=== PATIENT | male | born 2000 | race Caucasian/White ===

== ENCOUNTER 2020-09-24 10:09 | Emergency (ER) | payer OTHER ==
[~2020-09-24] VITALS: Ht 167.6 cm; Wt 56.7 kg
[~2020-09-24 10:09] MED LIST: AMOX500 PO; AMOX50SU PO; CALCA400CH; INSN100I SQ; INSR10I SC; INSUASPI SC; INSULANI SC; INSULANPEN SC; MULTCH; RXCODACESY PO
[2020-09-24 10:46] LABS: BASOPHILS ABSOLUTE AUTO 0.04 K/mm3 (0.00-0.23); BASOPHILS PERCENT AUTO 0 % (0-2); EOSINOPHILS ABSOLUTE AUTO 0.03 K/mm3 (0.00-0.68); EOSINOPHILS PERCENT AUTO 0 % (0-6); Hematocrit 42.7 % (37.0-53.0); Hemoglobin 14.7 g/dL (13.5-17.5); IMMATURE GRAN ABSOLUTE AUTO 0.05 K/mm3 (0.00-0.10); IMMATURE GRAN PERCENT AUTO 1 % (0-1); LYMPHOCYTES ABSOLUTE AUTO 1.56 K/mm3 (0.84-5.20); LYMPHOCYTES PERCENT AUTO 15 % (21-46); MONOCYTES ABSOLUTE AUTO 0.56 K/mm3 (0.16-1.47); MONOCYTES PERCENT AUTO 6 % (4-13); Mean Corpuscular HGB 29.6 pg (26.0-34.0); Mean Corpuscular HGB Conc 34.4 g/dL (31.5-36.5); Mean Corpuscular Volume 86 fL (80-100); Mean Platelet Volume 10.2 fL (9.1-12.4); NEUTROPHILS ABSOLUTE AUTO 7.92 K/mm3 (1.96-9.15); NEUTROPHILS PERCENT AUTO 78 % (41-73); Platelet Count 293 K/mm3 (150-400); RDW Coefficient Variation 11.8 % (11.7-14.2); Red Blood Cell Count 4.96 M/mm3 (4.30-5.90); White Blood Cell Count 10.16 K/mm3 (4.00-11.30)
[2020-09-24 11:03] LABS: Alanine Aminotransfer (ALT/SGP 33 U/L (12-78); Albumin, Blood 4.1 g/dL (3.4-5.0); Albumin/Globulin Ratio 1.1 (0.8-1.8); Alk Phos 109 U/L (50-136); Anion Gap 7 mmol/L (6-16); Aspartate Aminotrans (AST/SGOT 31 U/L (12-37); Bilirubin, Total 0.3 mg/dL (0.1-1.0); Blood Urea Nitrogen 11 mg/dL (8-24); Bun/Creatinine Ratio 16.1 (12.0-20.0); CO2, Blood 27 mmol/L (21-32); Calcium, Blood 9.2 mg/dL (8.5-10.1); Chloride, Blood 104 mmol/L (98-108); Creatinine, Blood 0.68 mg/dL (0.60-1.20); Globulin, Blood 3.7 g/dL (2.2-4.0); Glomerular Filtration Rate >60 (60-); Glucose, Blood 109 mg/dL (70-99); Sodium, Blood 138 mmol/L (136-145); Total Protein, Blood 7.8 g/dL (6.4-8.2)
[2020-09-24 11:16] LABS: Source, Urine Voided
[2020-09-24 11:23] LABS: Appearance, Urine Clear (Clear); Bilirubin, Urine Neg (Neg); Blood, Urine 1+ (Neg); Color, Urine Yellow (P-Yellow); Glucose Qualitative, Urine 3+ (Neg); Ketones, Urine 4+ (Neg); Leukocyte Esterase, Urine Neg (Neg); Nitrite, Urine Neg (Neg); Protein, Urine 3+ (Neg); Specific Gravity, Urine 1.015 (1.003-1.022); Urobilinogen, Urine NORM (Normal)
[2020-09-24 11:34] LABS: Bacteria Rare /hpf; Mucus Mod (0-Heavy); Red Blood Cells, Urine 0-2 /hpf (0-2); Squamous Epithelial Cells Rare /hpf (Few); White Blood Cells, Urine 0-2 /hpf (0-5)
[2020-09-24] MEDS ORDERED: ONDA4ODT MM (13:51)
== END 2020-09-24 14:01 | disposition home or self-care (01) ==
LOC: ER 10:09
PROVIDERS: Emergency Medicine
DX: R11.2 Nausea with vomiting, unspecified (principal); R10.12 Left upper quadrant pain; E10.9 Type 1 diabetes mellitus without complications; Z79.4 Long term (current) use of insulin
CPT/HCPCS: 36415; 80053; 81001; 83690; 85025; 96374; 96375; 99284-25; J1200; J1630; J2765; J3010; J7120

== ENCOUNTER 2021-04-09 15:38 | Emergency (ER) | payer OTHER ==
[~2021-04-09] VITALS: Ht 167.6 cm; Wt 59.0 kg
[~2021-04-09 15:38] MED LIST changes: +ONDA4ODT MM
[2021-04-09 16:25] LABS: BASOPHILS ABSOLUTE AUTO 0.06 K/mm3 (0.00-0.23); BASOPHILS PERCENT AUTO 0 % (0-2); EOSINOPHILS ABSOLUTE AUTO 0.04 K/mm3 (0.00-0.68); EOSINOPHILS PERCENT AUTO 0 % (0-6); Hematocrit 45.1 % (37.0-53.0); IMMATURE GRAN ABSOLUTE AUTO 0.11 K/mm3 (0.00-0.10); IMMATURE GRAN PERCENT AUTO 1 % (0-1); LYMPHOCYTES ABSOLUTE AUTO 2.47 K/mm3 (0.84-5.20); LYMPHOCYTES PERCENT AUTO 14 % (21-46); MONOCYTES ABSOLUTE AUTO 1.58 K/mm3 (0.16-1.47); MONOCYTES PERCENT AUTO 9 % (4-13); Mean Corpuscular HGB 29.9 pg (26.0-34.0); Mean Corpuscular HGB Conc 35.5 g/dL (31.5-36.5); Mean Corpuscular Volume 84 fL (80-100); NEUTROPHILS ABSOLUTE AUTO 13.34 K/mm3 (1.96-9.15); NEUTROPHILS PERCENT AUTO 76 % (41-73); Platelet Count 372 K/mm3 (150-400); RDW Coefficient Variation 11.9 % (11.7-14.2); RDW Standard Deviation 36.8 fL (35.1-46.3); Red Blood Cell Count 5.36 M/mm3 (4.30-5.90)
[2021-04-09 16:40] LABS: Alanine Aminotransfer (ALT/SGP 41 U/L (12-78); Albumin, Blood 3.9 g/dL (3.4-5.0); Albumin/Globulin Ratio 1.1 (0.8-1.8); Alk Phos 130 U/L (50-136); Anion Gap 12 mmol/L (6-16); Aspartate Aminotrans (AST/SGOT 25 U/L (12-37); Bilirubin, Total 0.9 mg/dL (0.1-1.0); Blood Urea Nitrogen 30 mg/dL (8-24); CO2, Blood 22 mmol/L (21-32); Calcium, Blood 9.4 mg/dL (8.5-10.1); Chloride, Blood 94 mmol/L (98-108); Creatinine, Blood 0.63 mg/dL (0.60-1.20); Globulin, Blood 3.5 g/dL (2.2-4.0); Glomerular Filtration Rate >60 (60-); Glucose, Blood 174 mg/dL (70-99); Potassium, Blood 4.1 mmol/L (3.5-5.5); Sodium, Blood 128 mmol/L (136-145); Total Protein, Blood 7.4 g/dL (6.4-8.2)
[2021-04-09 16:53] LABS: Source, Urine Catheter
[2021-04-09 17:04] LABS: Bilirubin, Urine Neg (Neg); Blood, Urine 3+ (Neg); Glucose Qualitative, Urine 4+ (Neg); Ketones, Urine 4+ (Neg); Leukocyte Esterase, Urine Neg (Neg); Nitrite, Urine Neg (Neg); Protein, Urine 4+ (Neg); Urobilinogen, Urine NORM (Normal)
[2021-04-09 17:13] LABS: Appearance, Urine Clear (Clear); Color, Urine Pale Yellow (P-Yellow)
[2021-04-09 17:14] LABS: Granular Casts 0-2 /lpf (0)
[2021-04-09 17:15] LABS: Bacteria Mod /hpf; Red Blood Cells, Urine 0-2 /hpf (0-2); Squamous Epithelial Cells Not Seen /hpf (Few); White Blood Cells, Urine Rare /hpf (0-5)
[2021-04-09 19:26] LABS: pH Blood Venous 7.37 (7.34-7.37)
[2021-04-09 19:27] LABS: Bicarbonate Venous 22.2 mmol/L (24.0-30.0); PCO2 Venous 38.5 mmHg (38-42); PO2 Venous 83.1 mmHg (38-42)
[2021-04-09 19:36] LABS: Anion Gap 11 mmol/L (6-16); Blood Urea Nitrogen 27 mg/dL (8-24); Bun/Creatinine Ratio 45.5 (12.0-20.0); CO2, Blood 22 mmol/L (21-32); Calcium, Blood 8.6 mg/dL (8.5-10.1); Chloride, Blood 96 mmol/L (98-108); Creatinine, Blood 0.59 mg/dL (0.60-1.20); Glomerular Filtration Rate >60 (60-); Glucose, Blood 162 mg/dL (70-99); Sodium, Blood 129 mmol/L (136-145)
== END 2021-04-09 20:07 | disposition home or self-care (01) ==
LOC: ER 15:38
PROVIDERS: Physician Assistant; Student in an Organized Health Care Education/Training Program
DX: E10.65 Type 1 diabetes mellitus with hyperglycemia (principal); E87.1 Hypo-osmolality and hyponatremia; E86.0 Dehydration; Z88.8 Allergy status to other drugs, medicaments and biological substances; E10.319 Type 1 diabetes mellitus with unspecified diabetic retinopathy without macular edema
CPT/HCPCS: 36415; 71046; 80048; 80053; 81001; 82010; 82803; 82947; 85025; 87086; 99283-25; J7030

== ENCOUNTER 2024-05-19 05:29 | Inpatient (IN) | payer OTHER ==
[2024-05-19] VITALS (18 sets, daily range): BP systolic 130–165; BP diastolic 77–112
[~2024-05-19] VITALS: Ht 167.6 cm; Wt 54.7 kg
[~2024-05-19 05:29] MED LIST changes: +BASAGLAR K100 UNIT/3 SC; -INSUASPI SC; +NOVOLOG FL100 UNIT/3
[2024-05-19 05:50] LABS: Base Excess Venous -14.1 mmol/L; Bicarbonate Venous 15.1 mmol/L (24.0-30.0); PCO2 Venous 27.7 mmHg (38-42)
[2024-05-19] MEDS ORDERED: NS 1,000 ML IV SCH ×2 (05:50→08:35)
[2024-05-19 05:51] LABS: pH Blood Venous 7.27 (7.34-7.37)
[2024-05-19 06:02] LABS: BASOPHILS ABSOLUTE AUTO 0.17 K/mm3 (0.00-0.23); BASOPHILS PERCENT AUTO 1 % (0-2); EOSINOPHILS ABSOLUTE AUTO 0.01 K/mm3 (0.00-0.68); EOSINOPHILS PERCENT AUTO 0 % (0-6); Hematocrit 45.6 % (37.0-53.0); Hemoglobin 16.1 g/dL (13.5-17.5); IMMATURE GRAN ABSOLUTE AUTO 1.14 K/mm3 (0.00-0.10); IMMATURE GRAN PERCENT AUTO 4 % (0-1); LYMPHOCYTES ABSOLUTE AUTO 3.39 K/mm3 (0.84-5.20); LYMPHOCYTES PERCENT AUTO 11 % (21-46); MONOCYTES ABSOLUTE AUTO 2.06 K/mm3 (0.16-1.47); MONOCYTES PERCENT AUTO 7 % (4-13); Mean Corpuscular HGB 30.3 pg (26.0-34.0); Mean Corpuscular HGB Conc 35.3 g/dL (31.5-36.5); Mean Corpuscular Volume 86 fL (80-100); Mean Platelet Volume 10.1 fL (9.1-12.4); NEUTROPHILS ABSOLUTE AUTO 24.52 K/mm3 (1.96-9.15); NEUTROPHILS PERCENT AUTO 79 % (41-73); Platelet Count 558 K/mm3 (150-400); RDW Coefficient Variation 11.9 % (11.7-14.2); RDW Standard Deviation 37.3 fL (35.1-46.3); Red Blood Cell Count 5.31 M/mm3 (4.30-5.90); White Blood Cell Count 31.29 K/mm3 (4.00-11.30)
[2024-05-19] MEDS ORDERED: Lactated Ringer's 1,000 ML IV ONE (06:10)
[2024-05-19] MEDS ORDERED: Ondansetron HCl 2 MG / ML 2ML Vial IV ONE (06:10)
[2024-05-19 07:12] LABS: Albumin, Blood 3.9 g/dL (3.4-5.0); Beta-hydroxybutyrate 104.2 mg/dL (0.2-2.8); Bilirubin, Total 0.7 mg/dL (0.1-1.0); Bun/Creatinine Ratio 17.1 (12.0-20.0); Calcium, Blood 9.6 mg/dL (8.5-10.1); Creatinine, Blood 1.17 mg/dL (0.60-1.20); Potassium, Blood 3.9 mmol/L (3.5-5.5); Total Protein, Blood 7.9 g/dL (6.4-8.2)
[2024-05-19] MEDS ORDERED: Insulin Human Regular 100 UNIT in NS 100 ML IV SCH (07:25)
[2024-05-19] MEDS ORDERED: FLU VACC TS2024-25(6MOS UP)/PF 45 MCG/0.5 ML SYRINGE IM SCH (08:35)
[2024-05-19] MEDS ORDERED: D5W-1/2NS 1,000 ML IV SCH (08:40)
[2024-05-19] MEDS ORDERED: Dextrose 50% 50 ML Vial IV PRN (08:45)
[2024-05-19 09:02] LABS: Source, Urine Clean Catch
[2024-05-19 09:15] LABS: Appearance, Urine Clear (Clear); Bilirubin, Urine Neg (Neg); Blood, Urine 2+ (Neg); Color, Urine Yellow (P-Yellow); Glucose Qualitative, Urine 4+ (Neg); Ketones, Urine 4+ (Neg); Leukocyte Esterase, Urine Neg (Neg); Nitrite, Urine Neg (Neg); Protein, Urine 3+ (Neg); Specific Gravity, Urine 1.015 (1.003-1.022); Urobilinogen, Urine NORM (Normal)
[2024-05-19 09:39] LABS: Bacteria Not Seen /hpf; Squamous Epithelial Cells Rare /hpf (Few); Transitional Epithelial Cells Few /hpf (0-Rare); White Blood Cells, Urine 0-2 /hpf (0-5)
[2024-05-19 12:39] LABS: Bun/Creatinine Ratio 18.3 (12.0-20.0); Calcium, Blood 8.7 mg/dL (8.5-10.1); Creatinine, Blood 1.04 mg/dL (0.60-1.20); Potassium, Blood 3.7 mmol/L (3.5-5.5)
[2024-05-19 16:32] LABS: Bun/Creatinine Ratio 16.1 (12.0-20.0); Calcium, Blood 8.4 mg/dL (8.5-10.1); Creatinine, Blood 0.99 mg/dL (0.60-1.20); Potassium, Blood 3.5 mmol/L (3.5-5.5)
[2024-05-19] MEDS ORDERED: Prinivil10 MG PO (17:08)
--- NOTE | 2024-05-19 18:14 | NUR ---
SUMMARY PT ADMITTED TO ICU 16 FROM ER AT 0930. ON INSULIN GTT (SEE FLOWSHEET) AND NS ON ARRIVAL. AFTER GLUCOSE WAS LESS THAN 250 PT WAS STARTED ON D5 1/2NS. PT IS A/O X4, INDEP IN ROOM. TOLERATING WATER WITHOUT NAUSEA. NO SIGN OF DISTRESS. USING CALL LIGHT APPROPRIATELY.
[2024-05-19] MEDS ORDERED: Ondansetron HCl 2 MG / ML 2ML Vial IV PRN (19:05)
--- NOTE | 2024-05-19 19:58 | NUR ---
ASSUMPTION OF CARE/ASSESSMENT: ASSUMED CARE OF PT AT 1900; REPORT RECIEVED FROM EMERY AN. PT HER FOR DKA, CONTINUES ON INSULIN GTT @ 3.5 UN/HR AND D5 1/2 NS @ 150 MLS/HR. PT IN BED AT THIS TIME; A&O X 4, PLEASANT AND COOPERATIVE WITH CARE. MOTHER AT BEDSIDE DURING ASSESSMENT; UPDATED ON PLAN OF CARE OF THE NIGHT. PT LUNGS ARE CLEAR T/O, ON RA WITH SPO2 96<; DENIES SOB AT THIS TIME. SR ON MONITOR WITH HR 90'S, SBP 130'S, AND DENIES CHEST PAIN/PRESSURE AT THIS TIME. PT AMBULATES INDEPENDENT TO USE BATHROOM IN ROOM; CALLS FOR ASSISTANCE APPROPRIATELY. RAMOS WELL, INDEPENDENT BED MOBILITY. BED LOWERED, CALL LIGHT IN REACH.
[2024-05-19 20:29] LABS: Bun/Creatinine Ratio 13.7 (12.0-20.0); Calcium, Blood 8.4 mg/dL (8.5-10.1); Creatinine, Blood 0.88 mg/dL (0.60-1.20); Potassium, Blood 3.4 mmol/L (3.5-5.5)
[2024-05-19] MEDS ORDERED: Potassium Chloride 60 MEQ IV SCH (20:40)
[2024-05-19] MEDS ORDERED: Potassium Chloride 40 MEQ in NS 250 ML IV ONE (20:45)
[2024-05-20] VITALS (13 sets, daily range): BP systolic 139–157; BP diastolic 93–127
[2024-05-20] MEDS ORDERED: Metoclopramide HCl 5MG / ML 2ML Vial IV PRN (00:35)
[2024-05-20] MEDS ORDERED: Potassium Chl 20MEQ/Water100ML 100 ML IV ONE (01:00)
[2024-05-20 01:35] LABS: Bun/Creatinine Ratio 12.5 (12.0-20.0); Calcium, Blood 8.6 mg/dL (8.5-10.1); Creatinine, Blood 0.88 mg/dL (0.60-1.20); Potassium, Blood 3.6 mmol/L (3.5-5.5)
--- NOTE | 2024-05-20 06:06 | NUR ---
SHIFT SUMMARY: NO ACUTE CHANGES THROUGHOUT THE NIGHT; PT REMAINS ON INSULIN GTT @ 2.9 UNITS/HR, D5 1/2 NS @ 200 MLS/HR. CBG 140-180'S. PT INTERMITTENLY NAUSEOUS THROUGHOUT THE NIGHT, ZOFRAN AND REGLAN GIVEN PER EMAR. PT UP TO ROOM TOLIET INDEPENDENT WITH ASSITANCE FOR CORDS. VSS THROUGHOUT THE NIGHT. BED LOWERED, CALL LIGHT IN REACH.
[2024-05-20 06:21] LABS: Bun/Creatinine Ratio 11.4 (12.0-20.0); Calcium, Blood 8.7 mg/dL (8.5-10.1); Creatinine, Blood 0.79 mg/dL (0.60-1.20); Potassium, Blood 3.9 mmol/L (3.5-5.5)
[2024-05-20] MEDS ORDERED: Insulin NPH 10 Unit/0.1ML (Single Dose) SC ONE (09:00)
[2024-05-20] MEDS ORDERED: Insulin Human Lispro 100 Units/ML 3ML Syringe SC SCH ×3 (11:30)
[2024-05-20] MEDS ORDERED: NS 1,000 ML IV SCH (13:20)
[2024-05-20 15:39] LABS: Bun/Creatinine Ratio 9.6 (12.0-20.0); Calcium, Blood 8.5 mg/dL (8.5-10.1); Creatinine, Blood 0.73 mg/dL (0.60-1.20); Potassium, Blood 3.3 mmol/L (3.5-5.5)
[2024-05-20] MEDS ORDERED: Potassium Chloride 20 MEQ TabCR PO ONE (15:50)
[2024-05-20] MEDS ORDERED: AMOCLA875 PO (16:26)
--- NOTE | 2024-05-20 16:57 | NUR ---
SUMMARY PT A/O X4, INDEP IN ROOM. OFF INSULIN GTT THIS AM. TRANSITIONED TO SS AND NPH. TOLERATING WATER AND JELLO. PT DISCHARGED HOME. NO SIGN OF DISTRESS PT LEAVES THE UNIT.
== END 2024-05-20 18:16 | disposition home or self-care (01) | DRG 638 ==
LOC: ER 05:29 → ICUE 08:33
PROVIDERS: Emergency Medicine; Internal Medicine; Nurse Practitioner Acute Care; ADMIT Internal Medicine
DX: E10.10 Type 1 diabetes mellitus with ketoacidosis without coma (principal); R65.10 Systemic inflammatory response syndrome (SIRS) of non-infectious origin without acute organ dysfunction; E10.319 Type 1 diabetes mellitus with unspecified diabetic retinopathy without macular edema; F17.290 Nicotine dependence, other tobacco product, uncomplicated; Z88.8 Allergy status to other drugs, medicaments and biological substances; K02.9 Dental caries, unspecified; Z91.148 Patient's other noncompliance with medication regimen for other reason; Z79.4 Long term (current) use of insulin
CPT/HCPCS: 36415; 80048; 80053; 81001; 82010; 82803; 82947; 83690; 85025; 96361; 96374; 99285-25; A9270; J1815; J2405; J2765; J3480; J7030; J7042; J7050; J7120